=== PATIENT | female | born 1950 | race Caucasian/White ===

== ENCOUNTER 2016-07-24 10:08 | Inpatient (IN) | payer OTHER ==
[~2016-07-24] VITALS: Ht 165.1 cm; Wt 84.8 kg
[2016-07-24 10:08] VITALS: BP 128/65; PULSE 62; RESP 16; TEMP 96.3; O2SAT 98
--- NOTE | 2016-07-24 10:08 | NUR ---
Placed in room 04. Placed on lunchroom monitor, blood pressure machine and pulse oximeter. To gown for exam. Side rails up. Report given to BRIDGETTE Stanley.
--- NOTE | 2016-07-24 10:14 | NUR ---
Dr. Baxter at bedside for evaluation
--- NOTE | 2016-07-24 10:20 | NUR ---
Patient brought in by for chief complaint of 8/10 pain to RLQ Ab and dry heaving since 4 am this morning. Patient presents as alert and oriented x 4, guarding RLQ ab verbalizing 8/10 pain. She describes the pain, "It comes in waves and radiates through my lower ab." Patient denies nausea at this time. No other complaints, injury per patient, none noted.
[2016-07-24] MEDS ORDERED: NACL 0.9% 1,000 ML IV ONE (10:25)
[2016-07-24 10:59] LABS: BASOPHILS # (AUTO) 0.1 K/uL (0.0-0.2); BASOPHILS % (AUTO) 1.3 % (0.0-2.0); EOSINOPHILS # (AUTO) 0.2 K/uL (0.0-0.4); EOSINOPHILS % (AUTO) 2.5 % (0.0-4.0); HEMOGLOBIN 13.3 g/dL (12.0-16.0); LYMPHOCYTES # (AUTO) 0.9 K/uL (1.0-5.5); LYMPHOCYTES % (AUTO) 11.1 % (20.5-51.5); MEAN CORPUSCULAR HEMOGLOBIN 30 pg (27-31); MEAN CORPUSCULAR HGB CONC 33 % (32-36); MEAN CORPUSCULAR VOLUME 90 fL (79.0-98.0); MONOCYTES # (AUTO) 0.3 K/uL (0.0-1.0); MONOCYTES % (AUTO) 4.4 % (1.7-9.3); NEUTROPHILS # (AUTO) 6.3 K/uL (1.8-7.7); NEUTROPHILS % (AUTO) 80.7 % (40.0-70.0); PLATELET COUNT (AUTO) 230 K/uL (130-430); RED BLOOD CELL COUNT(AUTO) 4.43 MIL/uL (4.2-6.2); RED CELL DISTRIBUTION WIDTH 13.1 % (9.0-15.0); WHITE BLOOD COUNT (AUTO) 7.8 K/uL (4.8-10.8)
[2016-07-24 11:05] LABS: CALCIUM 9.3 mg/dL (8.4-11.0); CREATININE 0.92 mg/dL (0.55-1.30); POTASSIUM 3.9 mmol/L (3.5-5.1)
[2016-07-24 11:09] LABS: ALBUMIN 4.2 g/dL (3.4-4.8); INR 0.9 (0.8-1.2); PROTHROMBIN TIME 10.2 SECS (9.5-12.5); TOTAL BILIRUBIN 0.5 mg/dL (0.0-1.0); TOTAL PROTEIN, SERUM 6.9 g/dL (6.4-8.3)
[2016-07-24] MEDS ORDERED: ONDANSETRON HCL 4 MG/2 ML VIAL IVP ONE (12:00)
[2016-07-24] MEDS ORDERED: MORPHINE 2 MG/ML INJ. SYRINGE IVP ONE (12:15)
--- NOTE | 2016-07-24 12:20 | NUR ---
Patient medicated as ordered.
--- NOTE | 2016-07-24 13:33 | NUR ---
Patient to be transferred to [facility] bed 116A. Is being transferred due to higher level of care. Receiving facility has accepting physician and available space. ER physician has signed transfer form. Patient or responsible alliance party has agreed to transfer and signed form. Patient belongings inventoried and will be sent with patient. Copy of nursing notes, lab reports, EKG, Physicians Orders and X-rays to be sent with patient. Report called to BRIDGETTE Duffy at receiving facility. Receiving physician is Dr. Johnson. Patient transferred via gurney with [facility] staff. Summary report printed. Report given at bedside, all paperwork provided.
--- NOTE | 2016-07-24 13:42 | NUR ---
ADMISSION: The patient, DOMINGUEZ PAUL, 66 y/o, F admitted by JOSE GOLD DO, was given written information regarding hospital policies, unit procedures and contact persons. Valuables were checked and patient informed Nika will be her nurse.
--- NOTE | 2016-07-24 14:06 | NUR ---
CALLED GI CONSULT TO DR JOE, RE: ABD PAIN. SPOKE TO LAMIN
--- NOTE | 2016-07-24 14:12 | NUR ---
assessment notes: received patient in room 116-A, at bedside.initial assessment rendered. call light with in reach. ns on going at left forearm intact. continue to monitor.
[2016-07-24] MEDS ORDERED: MAGNESIUM SULFATE 50 ML IV PRN (14:15)
[2016-07-24] MEDS ORDERED: POTASSIUM CHLORIDE 10 MEQ TAB.PRT.SR PO PRN (14:15)
[2016-07-24] MEDS ORDERED: ZOLPIDEM TARTRATE 5 MG TABLET PO PRN (14:15)
[2016-07-24] MEDS ORDERED: LORazepam 2 MG/ML VIAL IVP PRN (14:15)
[2016-07-24] MEDS ORDERED: DOCUSATE SODIUM 100 MG CAPSULE PO PRN (14:15)
[2016-07-24 14:16] VITALS: BP 114/67; PULSE 61; RESP 17; TEMP 97.2; O2SAT 97
--- NOTE | 2016-07-24 14:30 | NUR ---
gi order: spoke with dr key with orders give magnesium citrate po x1,mineral oil 30cc po q 6hours x 1 day. rosanne in am.
[2016-07-24] MEDS ORDERED: MAGNESIUM CITRATE 300 ML ORAL SOLUTION PO ONE (14:45)
--- NOTE | 2016-07-24 14:47 | NUR ---
CALLED ATTENDING MD DR GOLD, RE: ORDER TO DO A STRAIGHT CATH, PT CANNOT VOID. SPOKE TO NIK
--- NOTE | 2016-07-24 15:00 | NUR ---
straight catheter: straight catheter rendered as ordered,obtained tiffany urine in large amount.urine sample taken.
[2016-07-24] MEDS: MINERAL OIL 30 ML UDC PO SCH ×2 (15:25→20:25)
[2016-07-24] MEDS: ONDANSETRON HCL 4 MG/2 ML VIAL IVP PRN (15:32)
[2016-07-24] MEDS: D5NS 1,000 ML IV SCH (15:32)
[2016-07-24] MEDS: MORPHINE 2 MG/ML INJ. SYRINGE IVP PRN (15:33)
--- NOTE | 2016-07-24 16:25 | NUR ---
rounds: resting. needs attended to.
[2016-07-24 16:44] VITALS: BP 114/67; PULSE 61; RESP 16; TEMP 97.2; O2SAT 97
--- NOTE | 2016-07-24 18:40 | NUR ---
closing notes: stable. needs attended to. call light with in reach.
[2016-07-24 20:00] VITALS: BP 111/61; PULSE 64; RESP 18; TEMP 97.7; O2SAT 98
--- NOTE | 2016-07-24 20:00 | NUR ---
Initial Notes Received patient laying in bed, awake, alert, oriented. Patient denies any acute distress or pain at this time. Vital signs even and unlabored. IV site patent/clean/dry. Incontinence care provided by [employer], barrier cream applied. Educated patient on use of call light for assistance and fall precautions, patient verbalized understanding. Call light in hand, will continue to monitor for changes and safety.
--- NOTE | 2016-07-24 22:00 | NUR ---
Rounds Patient resting in bed, awake. Patient denies any acute distress or pain at this time. Breathing is even and unlabored. IV site patent/clean/dry. Needs addressed. Call light in hand, will continue to monitor.
--- NOTE | 2016-07-25 | NUR ---
Rounds Patient resting in bed with eyes closed, easily aroused. Patient denies any acute distress or pain at this time. Breathing is even and unlabored. IV site patent/clean/dry. Needs addressed. Will continue to monitor.
[2016-07-25 00:19] VITALS: BP 123/62; PULSE 73; RESP 18; TEMP 97.9; O2SAT 96
--- NOTE | 2016-07-25 02:15 | NUR ---
Rounds Patient resting in bed with eyes closed. No distress noted, breathing is even and unlabored. IV site patent/clean/dry. Call light in hand, fall precautions in place, will continue to monitor.
[2016-07-25] MEDS: D5NS 1,000 ML IV SCH ×2 (03:12→17:44)
[2016-07-25] MEDS: MINERAL OIL 30 ML UDC PO SCH ×2 (03:12→09:30)
--- NOTE | 2016-07-25 04:29 | NUR ---
Rounds Patient resting in bed with eyes closed. No acute distress noted, breathing is even and unlabored. IV site patent/clean/dry. Call light in hand, will continue to monitor.
[2016-07-25 05:55] VITALS: BP 118/74; PULSE 81; RESP 18; TEMP 98.3; O2SAT 95
--- NOTE | 2016-07-25 06:33 | NUR ---
Closing Notes Patient resting in bed with eyes closed, easily aroused. Patient denies any acute distress or pain at this time. Breathing is even and unlabored. IV site patent/clean/dry, no S/S infection/infiltration. Needs addressed throughout shift. Call light in hand, fall precautions in place. Will continue to monitor for changes and safety, and endorse all patient care/needs to oncoming nurse.
--- NOTE | 2016-07-25 07:20 | NUR ---
AM ROUNDS Pt A/Ox4, denies pain at this time...IVF infusing well to LFA...Pt aware of KUB later today...Pt ambulates to restroom with steady gait...Awaiting GI consult...Will cont to monitor
[2016-07-25 07:30] LABS: BASOPHILS # (AUTO) 0.1 K/uL (0.0-0.2); BASOPHILS % (AUTO) 0.7 % (0.0-2.0); EOSINOPHILS # (AUTO) 0.2 K/uL (0.0-0.4); EOSINOPHILS % (AUTO) 2.7 % (0.0-4.0); HEMATOCRIT 34.6 % (36-48); HEMOGLOBIN 11.3 g/dL (12.0-16.0); LYMPHOCYTES # (AUTO) 1.9 K/uL (1.0-5.5); LYMPHOCYTES % (AUTO) 20.9 % (20.5-51.5); MEAN CORPUSCULAR HEMOGLOBIN 30 pg (27-31); MEAN CORPUSCULAR HGB CONC 33 % (32-36); MEAN CORPUSCULAR VOLUME 91 fL (79.0-98.0); MONOCYTES # (AUTO) 0.9 K/uL (0.0-1.0); MONOCYTES % (AUTO) 9.5 % (1.7-9.3); NEUTROPHILS # (AUTO) 5.9 K/uL (1.8-7.7); NEUTROPHILS % (AUTO) 66.2 % (40.0-70.0); PLATELET COUNT (AUTO) 205 K/uL (130-430); RED CELL DISTRIBUTION WIDTH 13.6 % (9.0-15.0)
[2016-07-25 07:37] LABS: CALCIUM 7.9 mg/dL (8.4-11.0); CREATININE 0.8 mg/dL (0.55-1.30); POTASSIUM 4.6 mmol/L (3.5-5.1)
--- NOTE | 2016-07-25 09:00 | NUR ---
PT AMBULATED TO RESTROOM URINE OBTAINED AND SENT TO LAB FOR ANALYSIS
--- NOTE | 2016-07-25 09:28 | NUR ---
DR JOE AT BEDSIDE
[2016-07-25] MEDS: ACETAMINOPHEN 325 MG TABLET PO PRN (09:54)
[2016-07-25] MEDS ORDERED: ACETAMINOPHEN 500 MG TABLET PO PRN (10:00)
[2016-07-25] MEDS ORDERED: BISACODYL 5 MG TABLET.DR (DULCOLAX) PO ONE (10:00)
[2016-07-25] MEDS ORDERED: MILK OF MAGNESIA 30 ML UDC PO ONE (10:00)
[2016-07-25 12:12] VITALS: BP 104/56; PULSE 67; RESP 18; TEMP 96.8; O2SAT 96
--- NOTE | 2016-07-25 12:43 | NUR ---
NAUSEA PT C/O BEING NAUSEOUS....COVERING NURSE WILL MEDICATE WITH ANTIEMETIC
[2016-07-25] MEDS: ONDANSETRON HCL 4 MG/2 ML VIAL IVP PRN (13:03)
[2016-07-25] MEDS: METOCLOPRAMIDE HCL 10 MG/2 ML VIAL IVP SCH ×2 (13:03→22:06)
[2016-07-25] MEDS: MORPHINE 2 MG/ML INJ. SYRINGE IVP PRN (13:05)
--- NOTE | 2016-07-25 14:36 | NUR ---
ROUNDS PT STABLE...DENIES PAIN OR NAUSEA AT THIS TIME...WILL CONT TO MONITOR
[2016-07-25 16:50] VITALS: BP 110/60; PULSE 71; RESP 18; TEMP 97.4; O2SAT 94
--- NOTE | 2016-07-25 17:18 | NUR ---
PT ROD..PAGED DR. ALMANZA FOR POSSIBLE ADVANCE DIET TO SOFT FROM CLEAR
--- NOTE | 2016-07-25 17:18 | NUR ---
PT AMBULATED TO RESTROOM..PT HAD MEDIUM SIZE BM
--- NOTE | 2016-07-25 19:30 | NUR ---
CHANGE OF SHIFT: pt. awake, alert with at bedside, denies any discomfort at this time. IVF infusing.call light within reach.
[2016-07-25 20:00] VITALS: BP 116/48; PULSE 75; RESP 20; TEMP 98.2; O2SAT 97
--- NOTE | 2016-07-25 22:00 | NUR ---
NOTES: c/o headache and medicated and schedule meds given. pt. up to the restroom and had loose bm. repositioned self for comfort.
[2016-07-26] VITALS: BP 112/58; PULSE 77; RESP 16; TEMP 97.5; O2SAT 94
--- NOTE | 2016-07-26 00:15 | NUR ---
ROUNDS: pt. sleeping when made rounds.
--- NOTE | 2016-07-26 02:30 | NUR ---
ROUNDS: condition unchanged. sound asleep when checked.
[2016-07-26 04:00] VITALS: BP 126/94; PULSE 86; RESP 16; TEMP 97.3; O2SAT 94
--- NOTE | 2016-07-26 04:30 | NUR ---
ROUNDS: no complaints noted. resting quietly. IVF infusing, up to restroom and had another loose stool. no abdominal pain.
[2016-07-26] MEDS: METOCLOPRAMIDE HCL 10 MG/2 ML VIAL IVP SCH (06:02)
[2016-07-26] MEDS: D5NS 1,000 ML IV SCH (06:03)
[2016-07-26] MEDS: ACETAMINOPHEN 325 MG TABLET PO PRN (06:11)
--- NOTE | 2016-07-26 06:18 | NUR ---
NOTES: pt. already awake, schedule med given. verbalized she wants to go home. informed diet was change to soft. no nausea nor vomiting.
--- NOTE | 2016-07-26 06:45 | NUR ---
CLOSING NOTES: IVF patent, needs attended, goes to the restroom by herself. no abdominal pain.call light within reach.
[2016-07-26 06:55] LABS: BASOPHILS # (AUTO) 0.1 K/uL (0.0-0.2); BASOPHILS % (AUTO) 1.2 % (0.0-2.0); EOSINOPHILS # (AUTO) 0.2 K/uL (0.0-0.4); EOSINOPHILS % (AUTO) 3.8 % (0.0-4.0); HEMATOCRIT 32.4 % (36-48); HEMOGLOBIN 10.8 g/dL (12.0-16.0); LYMPHOCYTES # (AUTO) 1.8 K/uL (1.0-5.5); LYMPHOCYTES % (AUTO) 26.8 % (20.5-51.5); MEAN CORPUSCULAR HEMOGLOBIN 31 pg (27-31); MEAN CORPUSCULAR HGB CONC 33 % (32-36); MEAN CORPUSCULAR VOLUME 92 fL (79.0-98.0); MONOCYTES # (AUTO) 0.5 K/uL (0.0-1.0); MONOCYTES % (AUTO) 7.9 % (1.7-9.3); NEUTROPHILS # (AUTO) 3.9 K/uL (1.8-7.7); NEUTROPHILS % (AUTO) 60.3 % (40.0-70.0); PLATELET COUNT (AUTO) 175 K/uL (130-430); RED BLOOD CELL COUNT(AUTO) 3.54 MIL/uL (4.2-6.2); RED CELL DISTRIBUTION WIDTH 13.4 % (9.0-15.0); WHITE BLOOD COUNT (AUTO) 6.5 K/uL (4.8-10.8)
[2016-07-26 07:07] LABS: CALCIUM 8.2 mg/dL (8.4-11.0)
[2016-07-26 07:08] LABS: CREATININE 0.86 mg/dL (0.55-1.30)
--- NOTE | 2016-07-26 07:25 | NUR ---
endorsed pt. to incoming shift with nurse Hannah. noted relief from headache.
[2016-07-26 08:00] VITALS: BP 139/54; PULSE 77; RESP 17; TEMP 97.8; O2SAT 98
--- NOTE | 2016-07-26 08:00 | NUR ---
AM NOTES PT IN BED AWAKE. ALERT AND ORIENTED. AMBULATE TO THE BATHROOM WITH STEADY GAIT. IVF INFUSING WELL. HAS +BM. SAFETY PRECAUTION OBSERVED. CALL LIGHT IN REACH. ENC. TO CALL FOR HELP NEEDED. WILL MONITOR.
--- NOTE | 2016-07-26 08:23 | NUR ---
MD ROUNDS SEEN BY DR. STRAUSS. PER MD PT IS CLEARED TO GO HOME.
--- NOTE | 2016-07-26 08:56 | NUR ---
Nutrition Update Mario Scale 18 noted. Pt admitted for intractable abd pain Diet: mechanical soft BMI: 31.1 kg/m2 RD to follow per nutrition care standards.
[2016-07-26 09:43] VITALS: BP 154/58; PULSE 76; RESP 17; TEMP 97.8; O2SAT 94
--- NOTE | 2016-07-26 10:15 | NUR ---
discharge d/c pt home accompanied by family. denies any pain or discomfort. d/c instruction and follow up discussed to pt and family. verbalize understanding. arm band and ivl removed. discharge
--- NOTE | 2016-08-04 12:16 | NUR ---
Discharge Follow Up Phone Calls: [employer] called and left voice mails for pt ([phone]) on 07/31/16 and 08/01/16. [employer] called and spoke with pt today. Pt's states that she is doing well; there are no questions regarding discharge or medication instructions; pt has a PCP follow up appointment scheduled for 08/05/16. Pt did not express any other needs or concerns and denied the need for additional follow up at this time. No further follow up phone calls required at this time.
== END 2016-07-26 10:15 | disposition home or self-care (01) | DRG 392 ==
LOC: SED 10:08 → SMU 12:12
PROVIDERS: ADMIT General Practice; ATTEND General Practice
DX: K59.00 Constipation, unspecified (principal); M54.5 Low back pain; M47.816 Spondylosis without myelopathy or radiculopathy, lumbar region; K30 Functional dyspepsia; E66.9 Obesity, unspecified; E83.51 Hypocalcemia; R33.9 Retention of urine, unspecified; E78.5 Hyperlipidemia, unspecified; Z80.3 Family history of malignant neoplasm of breast; Z88.0 Allergy status to penicillin; Z88.1 Allergy status to other antibiotic agents; Z90.710 Acquired absence of both cervix and uterus; Z68.31 Body mass index [BMI] 31.0-31.9, adult
CPT/HCPCS: 36415; 74000-TC; 80048; 80053; 83690-TC; 83735-TC; 85025; 85610-TC; 85730-TC; 96361; 96374; 96375; 99285; J2270; J2405; J2765; J7030; J7042